=== PATIENT | male | born 1970 | race Caucasian/White ===

== ENCOUNTER 2019-07-10 21:36 | Emergency (ER) | payer BC ==
--- NOTE | 2019-07-10 22:19 | ER Document Report ---
ED General - General Chief Complaint: Eye Pain Stated Complaint: EYE PAIN Time Seen by Provider: 07/10/19 22:02 Primary Care Provider: RHONA BARRAGAN MD [Primary Care Provider] - Follow up as needed TRAVEL OUTSIDE OF THE [place] IN LAST 30 DAYS: No - HPI Notes: Chief complaint: Irritation left eye with possible foreign body History of present illness: Generally healthy 49-year-old male who wears reading glasses and does not use contact lenses reports irritation of left eye which developed while he was on a riding lawn more cutting his grass this afternoon. He was not wearing safety glasses at the time. He came in the house afterwards and had a persistent burning sensation in the left eye and was rubbing at this. His reported that he became generally flushed and he was complaining of severe pain in the eye at that time. They subsequently wash the eye out. It feels much better since that time although he has mild persistent irritation. He denies any changes in visual acuity. 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 HENT: Negative for sore throat. Eyes: As per HPI. Cardiovascular: Negative for chest pain. Respiratory: Negative for shortness of breath. Gastrointestinal: Negative for abdominal pain, vomiting or diarrhea. Genitourinary: Negative for dysuria. Musculoskeletal: Negative for back pain. Skin: Negative for rash. Neurological: Negative for headaches, weakness or numbness. 10 point ROS negative except as marked above and in HPI. Physical Exam - Vital signs Vitals: Temp Pulse Resp BP Pulse Ox 98.1 F 80 20 174/95 H 97 07/10/19 21:41 07/10/19 21:41 07/10/19 21:41 07/10/19 21:41 07/10/19 21:41 - Notes Notes: GENERAL: Muscular male approximately stated age appearing in no acute distress. SKIN: Good turgor no rashes. HEAD: Normocephalic atraumatic. EYES: PERRLA. EOMI. left eye shows conjunctival injection without discharge. Lids were everted with no evidence of foreign body. Patient mildly photophobic. NECK: Supple. No masses or thyromegaly. No adenopathy. Carotids 2+ without bruits. No JVD. BACK: Symmetrical without tenderness. CHEST: Respirations unlabored. Breath sounds clear and symmetrical. HEART: Regular rhythm. No murmur gallop or rub. ABDOMEN: Soft nontender without masses, organomegaly or rebound. Bowel sounds normally active. No bruits. EXTREMITIES: No edema. No calf tenderness. Cap refill less than 1.5 seconds. Dorsalis pedis and posterior tibial pulses 3+ and symmetrical. NEUROLOGICAL: Alert and oriented x3. Nonfocal. PSYCHIATRIC: Appropriate affect. Course - Re-evaluation Re-evalutation: 07/10/19 23:01 Superficial corneal abrasion noted left eye. No streaming of floor seen. No foreign body visualized. Minimal impairment of visual acuity. Findings and rec ommendations discussed with the patient. - Vital Signs Vital signs: Temp Pulse Resp BP Pulse Ox 98.1 F 80 20 174/95 H 97 07/10/19 21:44 07/10/19 21:41 07/10/19 21:41 07/10/19 21:41 07/10/19 21:41 Procedures - Eye Procedure Left Eye Irrigated w/ Saline (ccs): 500 Alcaine Drops Administered: Yes Fluorescein applied: Left Antibiotic Oinment/Drps Admin: Left eye Cyclogel 2 Drops Administered: Left eye Slit lamp used: Yes Notes: 07/10/19 22:59 Abrasion present 1 o'clock position at the limbus. No streaming of floor seen. No foreign body visualized. Lids were fully everted. Discharge - Discharge Clinical Impression: Injury of conjunctiva and corneal abrasion of left eye w/o FB Qualifiers: Encounter type: initial encounter Qualified Code(s): S05.02XA - Injury of conjunctiva and corneal abrasion without foreign body, left eye, initial encounter Condition: Stable Disposition: HOME, SELF-CARE Instructions: Corneal Abrasion ([facility]) Additional Instructions: Use Polytrim 2 drops left eye 4 times a day. Use Cyclogyl 2 drops left eye twice a day. Tylenol/Motrin OTC as needed for supplemental pain relief. Wear dark glasses if you go out into bright sunlight. Follow-up with safety sitter on Saturday for reevaluation. Return here as needed for new or worsening symptoms: Pain that is worsening or unimproved Uncontrolled vomiting High fever or shaking chills Overall worsening Referrals: RHONA BARRAGAN MD [Primary Care Provider] - Follow up as needed
[2019-07-10] MEDS ORDERED: TETRACAINE HCL 0.5% OPH SOLN 4 ML OS ONE (22:41)
[2019-07-10] MEDS ORDERED: POLYMYXIN B SULFATE/TMP OPH SOLN (10 ML/ER DISP) OS PRN (22:52)
[2019-07-10] MEDS ORDERED: CYCLOPENTOLATE HCL 1% OPH SOLN 2 ML OS ONE (22:55)
[2019-07-10 23:45] VITALS: BP 162/70
[2019-07-11] MEDS ORDERED: CYCLOPENTOLATE HCL 1% OPH SOLN 2 ML ONE (00:31)
== END 2019-07-11 00:30 | disposition home or self-care (01) ==
LOC: ER 21:36
DX: S05.02XA Injury of conjunctiva and corneal abrasion without foreign body, left eye, initial encounter (principal); H57.12 Ocular pain, left eye; W22.8XXA Striking against or struck by other objects, initial encounter; Y93.H2 Activity, gardening and landscaping; Z79.899 Other long term (current) drug therapy
CPT/HCPCS: 99283; J3490 ×3